=== PATIENT | female | born 1950 | race Caucasian/White ===

== ENCOUNTER 2018-03-01 19:32 | Inpatient (IN) | payer OTHER, BC ==
--- OUTSIDE RECORDS SUMMARY | 2018-03-01 19:51 | XMS REPORT | Clinical Summary ---
:1950 Author Organization [facility] Address [address] [place] [address] Care Team Providers Name Role Phone Lenny Mariee MD Primary Care Provider Allergies Active Allergy Reactions Severity Noted Date Comments Neomycin Swelling, Rash Low 06/16/2017 Tramadol Itching 06/16/2017 hyperactive Current Medications Prescription Sig. Disp. Refills Start Date End Date Status valsartan-hydrochl Take 1 tablet by Active orothiazide mouth every (DIOVAN-HCT) morning. 80-12.5 mg per tablet carvedilol (COREG) Take 12.5 mg by Active 12.5 MG tablet mouth 2 (two) times a day with meals. atorvastatin Take 20 mg by Active (LIPITOR) 20 MG mouth every tablet evening. Default OP ins metFORMIN XR Take 500 mg by Active (GLUCOPHAGE-XR) mouth every 500 mg 24 hr evening. tablet zolpidem (AMBIEN) Take 10 mg by Active 10 mg tablet mouth nightly as needed for sleep. melatonin 10 mg Take 10 mg by Active capsule mouth nightly. cetirizine Take 10 mg by Active (ZyrTEC) 10 MG mouth every tablet morning. celecoxib TK 1 C PO BID WC 2 06/16/2017 Active (CeleBREX) 200 MG capsule FLECTOR 1.3 % APPLY 1 PATCH BID 0 06/16/2017 Active patch 12 hour BY TRANSDERMAL ROUTE HYDROcodone-acetam TK 1 T PO Q 4 H 0 06/16/2017 Active inophen (NORCO) 10-325 mg per tablet MOVANTIK 25 mg 1 06/16/2017 Active tablet tablet ondansetron TK 1 T PO Q 8 H 0 06/16/2017 Active (ZOFRAN) 4 MG PRF NAUSEA OR VOM tablet tapentadol Take 100 mg by Active (NUCYNTA) 100 mg mouth every 6 tablet (six) hours as needed. aspirin (ECOTRIN) Take 81 mg by Discontinued 81 MG enteric mouth daily. 8 coated tablet aspirin (ECOTRIN) Take 1 tablet (81 60 tablet 0 06/29/2017 81 MG enteric mg total) by 8 coated tablet mouth 2 (two) times a day for 30 days. 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) 06/28/2017 Encounters Date Type Specialty Care Team Description 06/28/2017 Hospital Encounter Orthopedic Jose Lau - Surgery MD Chava 06/29/2017 06/28/2017 Procedure Pass Orthopedic Surgery 06/28/2017 Surgery Orthopedic Jose Lau REVISION, Surgery MD Chava ARTHROPLASTY, KNEE 06/16/2017 Pre-Admit Testing Pre-Admission Jose Lau Appointment Testing MD Chava 06/16/2017 Hospital Encounter Radiology Ulysses Dorantes MD Preop examination 06/16/2017 Lab Lab Ulysses Dorantes MD Pre-operative cardiovascular examination (Primary Dx); Other abnormal glucose; Essential hypertension, malignant 06/16/2017 Anesthesia Event [facility] Natalie, MIXING ROLL OPERATOR 06/16/2017 Transcribe Orders Access User, Transcribing Preop examination Order (Primary Dx) after 02/28/2017 Social History Tobacco Use Types Packs/Day Years Used Date Never Smoker Smokeless Tobacco: Never Used Alcohol Use Drinks/Week oz/Week Comments Yes 3 drinks per week Sex Assigned at Date Recorded Not on file Last Filed Vital Signs Vital Sign Reading Time Taken Blood Pressure 102/58 06/29/2017 1:40 PM POWER ORIGINATOR Pulse 83 06/29/2017 1:40 PM POWER ORIGINATOR Temperature 35.9 C (96.6 F) 06/29/2017 1:40 PM POWER ORIGINATOR Respiratory Rate 16 06/29/2017 1:40 PM POWER ORIGINATOR Oxygen Saturation 94% 06/29/2017 1:40 PM POWER ORIGINATOR Inhaled Oxygen Concentration - - Weight 87.5 kg (193 lb) 06/28/2017 4:08 PM POWER ORIGINATOR Height 160 cm (5' 3") 06/28/2017 4:08 PM POWER ORIGINATOR Body Mass Index 34.19 06/28/2017 4:08 PM POWER ORIGINATOR Plan of Treatment Health Maintenance Due Date Last Done Comments BREAST CANCER SCREENING 2000 COLON CANCER SCREENING 2000 SHINGRIX VACCINE (#1) 2000 ZOSTER VACCINE 2010 PNEUMOCOCCAL POLYSACCHARIDE VACCINE AGE 65 AND OVER 12/25/2015 PNEUMOCOCCAL-13 12/25/2015 INFLUENZA VACCINE 12/22/2017 Implants Implanted Type Area [employer] Application Developer Device Expiration Model / Identifier Date Serial / Lot Augment Fml Triathlon Distl Lt Ts Sz 3 5mm - [id number] Knee Joint Left: LIZET 05/07/2021 5540 A 301 / Implanted: Qty: 1 on 06/28/2017 by Jose Lau MD Implants Knee ORTHOPEDICS / WSSH Component Fml Lt Ts Sz 3 Triathlon - [id number] Knee Joint Left: LIZET 04/13/2022 5512 F 301 / Implanted: Qty: 1 on 06/28/2017 by Jose Lau MD Implants Knee ORTHOPEDICS / [id number] Insert Tib P-Stb Sz 3 11mm Triathlon X3 - [id number] Knee Joint Left: LIZET 02/05/2021 5532 G 311 / Implanted: Qty: 1 on 06/28/2017 by Jose Lau MD Implants Knee ORTHOPEDICS / [id number] Adapter Ofst Triathlon Ts 2mm - [id number] Knee Joint Left: LIZET 2021 5570 S 020 / Implanted: Qty: 1 on 06/28/2017 by Jose Lau MD Implants Knee ORTHOPEDICS / [id number] Baseplate Tib Triathlon Cementd Univl Sz 3 - [id number] Knee Joint Left: LIZET 02/07/2022 5521 B 300 / Implanted: Qty: 1 on 06/28/2017 by Jose Lau MD Implants Knee ORTHOPEDICS / [id number] Stem Cementd Ts [id number] Triathlon - [id number] Knee Joint Left: LIZET 5560 S 115 / Implanted: Qty: 1 on 06/28/2017 by Jose Lau MD Implants Knee ORTHOPEDICS / [id number] Augment Fml Triathlon Post Ts Sz 3 5mm - [id number] Knee Joint Left: LIZET 09/10/2020 5543 A 300 / Implanted: Qty: 1 on 06/28/2017 by Jose Lau MD Implants Knee ORTHOPEDICS / URVP Stem Knee Tri Cementd [id number] Triathlon - [id number] Orthopedic Left: LIZET 11/30/2021 5560 S 112 / Implanted: Qty: 1 on 06/28/2017 by Jose Lau MD Trauma Knee ORTHOPEDICS / Implants [id number] Cement Bone Full-Dose Premxd W/ Tobr Simplex P Pack 10/Ea - [id number] Surgical Bone Left: LIZET 12/21/2018 [id number] / Implanted: 06/28/2017 (Quantity not on file) Cement Knee ORTHOPEDICS / HIPS-KNEES [id number] Cement Bone Full-Dose Premxd W/ Tobr Simplex P Pack 10/Ea - [id number] Surgical Bone Left: LIZET 12/21/2018 [id number] / Implanted: Qty: 1 on 06/28/2017 by Jose Lau MD Cement Knee ORTHOPEDICS / HIPS-KNEES [id number] Cement Bone Full-Dose Premxd W/ Tobr Simplex P Pack 10/Ea - [id number] Surgical Bone Left: LIZET 12/21/2018 [id number] / Implanted: Qty: 1 on 06/28/2017 by Jose Lau MD Cement Knee ORTHOPEDICS / HIPS-KNEES [id number] Explanted Type Area [employer] Application Developer Device Expiration Model / Identifier Date Serial / Lot Insert Tib P-Stb Sz 3 11mm Triathlon X3 - [id number] Knee Joint Left: LIZET 01/03/2022 5532 G 311 / Explanted: Qty: 1 on 06/28/2017 Implants Knee ORTHOPEDICS / [id number] Procedures Procedure Name Priority Date/Time Associated Comments Diagnosis POC GLUCOSE Routine 06/29/2017 11:47 Results for this AM POWER ORIGINATOR procedure are in the results section. POC GLUCOSE Routine 06/29/2017 8:00 Results for this AM POWER ORIGINATOR procedure are in the results section. HC COMPLETE BLD COUNT Routine 06/29/2017 4:00 Results for this W/AUTO DIFF AM POWER ORIGINATOR procedure are in the results section. POC GLUCOSE Routine 06/28/2017 9:43 Results for this PM POWER ORIGINATOR procedure are in the results section. POC GLUCOSE Routine 06/28/2017 4:20 Results for this PM POWER ORIGINATOR procedure are in the results section. POC GLUCOSE Routine 06/28/2017 12:59 Results for this PM POWER ORIGINATOR procedure are in the results section. AFB STAIN Timed 06/28/2017 11:52 Results for this AM POWER ORIGINATOR procedure are in the results section. FUNGUS SMEAR Timed 06/28/2017 11:52 Results for this AM POWER ORIGINATOR procedure are in the results section. GRAM STAIN Timed 06/28/2017 11:52 Results for this AM POWER ORIGINATOR procedure are in the results section. AEROBIC CULTURE Timed 06/28/2017 11:52 Results for this AM POWER ORIGINATOR procedure are in the results section. FUNGUS CULTURE Timed 06/28/2017 11:52 Results for this AM POWER ORIGINATOR procedure are in the results section. ANAEROBIC CULTURE Timed 06/28/2017 11:52 Results for this AM POWER ORIGINATOR procedure are in the results section. FUNGUS SMEAR Timed 06/28/2017 11:41 Results for this AM POWER ORIGINATOR procedure are in the results section. GRAM STAIN Timed 06/28/2017 11:41 Results for this AM POWER ORIGINATOR procedure are in the results section. AFB STAIN Timed 06/28/2017 11:41 Results for this AM POWER ORIGINATOR procedure are in the results section. AEROBIC CULTURE Timed 06/28/2017 11:41 Results for this AM POWER ORIGINATOR procedure are in the results section. FUNGUS CULTURE Timed 06/28/2017 11:41 Results for this AM POWER ORIGINATOR procedure are in the results section. ANAEROBIC CULTURE Timed 06/28/2017 11:41 Results for this AM POWER ORIGINATOR procedure are in the results section. AFB STAIN Timed 06/28/2017 11:30 Results for this AM POWER ORIGINATOR procedure are in the results section. GRAM STAIN Timed 06/28/2017 11:30 Results for this AM POWER ORIGINATOR procedure are in the results section. FUNGUS SMEAR Timed 06/28/2017 11:30 Results for this AM POWER ORIGINATOR procedure are in the results section. AEROBIC CULTURE Timed 06/28/2017 11:30 Results for this AM POWER ORIGINATOR procedure are in the results section. FUNGUS CULTURE Timed 06/28/2017 11:30 Results for this AM POWER ORIGINATOR procedure are in the results section. ANAEROBIC CULTURE Timed 06/28/2017 11:30 Results for this AM POWER ORIGINATOR procedure are in the results section. AFB STAIN Timed 06/28/2017 11:19 Results for this AM POWER ORIGINATOR procedure are in the results section. GRAM STAIN Timed 06/28/2017 11:19 Results for this AM POWER ORIGINATOR procedure are in the results section. FUNGUS SMEAR Timed 06/28/2017 11:19 Results for this AM POWER ORIGINATOR procedure are in the results section. AEROBIC CULTURE Timed 06/28/2017 11:19 Results for this AM POWER ORIGINATOR procedure are in the results section. FUNGUS CULTURE Timed 06/28/2017 11:19 Results for this AM POWER ORIGINATOR procedure are in the results section. ANAEROBIC CULTURE Timed 06/28/2017 11:19 Results for this AM POWER ORIGINATOR procedure are in the results section. SURGICAL PATHOLOGY Routine 06/28/2017 11:11 Results for this REQUEST AM POWER ORIGINATOR procedure are in the results section. AFB STAIN Timed 06/28/2017 11:08 Results for this AM POWER ORIGINATOR procedure are in the results section. FUNGUS SMEAR Timed 06/28/2017 11:08 Results for this AM POWER ORIGINATOR procedure are in the results section. GRAM STAIN Timed 06/28/2017 11:08 Results for this AM POWER ORIGINATOR procedure are in the results section. AEROBIC CULTURE Timed 06/28/2017 11:08 Results for this AM POWER ORIGINATOR procedure are in the results section. FUNGUS CULTURE Timed 06/28/2017 11:08 Results for this AM POWER ORIGINATOR procedure are in the results section. ANAEROBIC CULTURE Timed 06/28/2017 11:08 Results for this AM POWER ORIGINATOR procedure are in the results section. NH AN ELECTIVE Routine 06/28/2017 10:56 SUPRAGLOTTIC AIRWAY AM POWER ORIGINATOR Procedure Note - Elba Kelly CRNA - 06/28/2017 10:55 AM POWER ORIGINATOR Airway Date/Time: 06/28/2017 10:40 AM Performed by: ELBA KELLY Authorized by: RASHI DEGROOT Location: OR Urgency: Elective Difficult Airway: No Resident/TRAIN CONTROLLER/AA: ELBA KELLY Performed by: resident/TRAIN CONTROLLER/AA Preoxygenated with 100% O2: Yes Mask Ventilation: Easy mask Final Airway Type: Supraglottic airway Final LMA: Classic LMA Size: 4 Number of Attempts at Approach: 1 Easy atraumatic placement of LMA; dentition and oropharynx unchanged AFB CULTURE Timed 06/28/2017 10:52 AM POWER ORIGINATOR NH AN SPINAL BLOCK Routine 06/28/2017 10:47 AM POWER ORIGINATOR POST-OP PAIN Procedure Note - Rashi Degroot MD - 06/28/2017 10:46 AM POWER ORIGINATOR Spinal Block Performed by: RASHI DEGROOT Authorized by: RASHI DEGROOT Patient Location: Pre-op Start Time: 06/28/2017 10:10 AM End Time: 06/28/2017 10:20 AM Reason for Block: at surgeon's request, post-op pain management Staff: Anesthesiologist: RASHI DEGROOT Performed by: Anesthesiologist patient identified, IV checked, site and side verified, risks and benefits discussed, procedure verified, surgical consent complete, patient position confirmed, monitors and equipment checked and pre-op evaluation complete TIme Out Performed: 06/28/2017 10:10 AM Spinal Block: Patient Position: Sitting Prep: Betadine and patient draped Monitoring: Blood pressure monitoring, continuous pulse oximetry and heart rate Approach: Midline Interspace: L3-4 Injection Technique: Single injection Needle: Needle Type: Pencil-tip Needle Gauge: 25 G Assessment: Coagulation status: Coagulation status verified Block assessment: No apparent complications and patient tolerated procedure well AFB CULTURE Timed 06/28/2017 10:41 AM POWER ORIGINATOR AFB CULTURE Timed 06/28/2017 10:30 AM POWER ORIGINATOR AFB CULTURE Timed 06/28/2017 10:19 AM POWER ORIGINATOR AFB CULTURE Timed 06/28/2017 10:08 AM POWER ORIGINATOR REVISION, 06/28/2017 9:30 AM POWER ORIGINATOR [id number] ARTHROPLASTY, KNEE [id number] Special Needs LIZET POC GLUCOSE Routine 06/28/2017 8:14 Results for this AM POWER ORIGINATOR procedure are in the results section. XR CHEST 2 VW Routine 06/16/2017 1:20 Preop examination Results for this PM POWER ORIGINATOR procedure are in the results section. ZZESTIMATED GFR Routine 06/16/2017 12:10 Results for this PM POWER ORIGINATOR procedure are in the results section. URINALYSIS SCREEN AND Routine 06/16/2017 12:10 Pre-operative Results for this MICROSCOPY, WITH PM POWER ORIGINATOR cardiovascular procedure are in REFLEX TO CULTURE examination the results Other abnormal section. glucose Essential hypertension, malignant PROTHROMBIN TIME WITH Routine 06/16/2017 12:10 Pre-operative Results for this INR PM POWER ORIGINATOR cardiovascular procedure are in examination the results Other abnormal section. glucose Essential hypertension, malignant PARTIAL THROMBOPLASTIN Routine 06/16/2017 12:10 Pre-operative Results for this TIME (PTT) PM POWER ORIGINATOR cardiovascular procedure are in examination the results Other abnormal section. glucose Essential hypertension, malignant HEMOGLOBIN A1C Routine 06/16/2017 12:10 Pre-operative Results for this PM POWER ORIGINATOR cardiovascular procedure are in examination the results Other abnormal section. glucose Essential hypertension, malignant COMPREHENSIVE Routine 06/16/2017 12:10 Pre-operative Results for this METABOLIC PANEL PM POWER ORIGINATOR cardiovascular procedure are in examination the results Other abnormal section. glucose Essential hypertension, malignant HC COMPLETE BLD COUNT Routine 06/16/2017 12:10 Pre-operative Results for this W/AUTO DIFF PM POWER ORIGINATOR cardiovascular procedure are in examination the results Other abnormal section. glucose Essential hypertension, malignant TYPE AND SCREEN STAT 06/16/2017 12:10 Pre-operative Results for this PM POWER ORIGINATOR cardiovascular procedure are in examination the results Other abnormal section. glucose Essential hypertension, malignant GRAM STAIN Routine 06/16/2017 12:10 Results for this PM POWER ORIGINATOR procedure are in the results section. URINE CULTURE Routine 06/16/2017 12:10 Results for this PM POWER ORIGINATOR procedure are in the results section. after 02/28/2017 Results POC glucose (06/29/2017 11:47 AM)Only the most recent of6 resultswithin the time period is included. POC glucose 150 (H) 65 - 99 mg/dL [facility] DEPARTMENT OF PATHOLOGY AND Comment: [facility]OMIC [facility]INE [facility] Notified RN Meter ID: [id number] Machine Tool Dresser: Jorge Jacob Performing Organization Address City/State/Zipcode Phone Number [facility] DEPARTMENT OF PATHOLOGY AND [address] [place] [phone] GENOMIC MEDICINE CBC with platelet and differential (06/29/2017 4:00 AM)Only the most recent of2 resultswithin the time period is included. WBC 14.70 (H) 4.50 - 11.00 k/uL [facility] DEPARTMENT OF PATHOLOGY AND GENOMIC MEDICINE RBC 3.65 (L) 4.20 - 5.50 m/uL [facility] DEPARTMENT OF PATHOLOGY AND GENOMIC MEDICINE HGB 11.3 (L) 12.0 - 16.0 g/dL [facility] DEPARTMENT OF PATHOLOGY AND GENOMIC MEDICINE HCT 34.0 (L) 37.0 - 47.0 % [facility] DEPARTMENT OF PATHOLOGY AND GENOMIC MEDICINE MCV 93.2 82.0 - 100.0 fL [facility] DEPARTMENT OF PATHOLOGY AND GENOMIC MEDICINE MCH 31.0 27.0 - 34.0 pg [facility] DEPARTMENT OF PATHOLOGY AND GENOMIC MEDICINE MCHC 33.2 31.0 - 37.0 g/dL [facility] DEPARTMENT OF PATHOLOGY AND GENOMIC MEDICINE RDW - SD 41.6 37.0 - 55.0 fL [facility] DEPARTMENT OF PATHOLOGY AND GENOMIC MEDICINE MPV 9.1 8.8 - 13.2 fL [facility] DEPARTMENT OF PATHOLOGY AND GENOMIC MEDICINE Platelet count 263 150 - 400 k/uL [facility] DEPARTMENT OF PATHOLOGY AND GENOMIC MEDICINE Nucleated RBC 0.00 /100 WBC [facility] DEPARTMENT OF PATHOLOGY AND GENOMIC MEDICINE Neutrophils 84.3 (H) 39.0 - 69.0 % [facility] DEPARTMENT OF PATHOLOGY AND GENOMIC MEDICINE Lymphocytes 8.8 (L) 25.0 - 45.0 % [facility] DEPARTMENT OF PATHOLOGY AND GENOMIC MEDICINE Monocytes 6.3 0.0 - 10.0 % [facility] DEPARTMENT OF PATHOLOGY AND GENOMIC MEDICINE Eosinophils 0.0 0.0 - 5.0 % [facility] DEPARTMENT OF PATHOLOGY AND GENOMIC MEDICINE Basophils 0.1 0.0 - 1.0 % [facility] DEPARTMENT OF PATHOLOGY AND GENOMIC MEDICINE Immature granulocytes 0.5Comment: 0.0 - 1.0 % [facility] DEPARTMENT OF "Immature PATHOLOGY AND GENOMIC granulocytes" MEDICINE (promyelocytes, myelocytes, metamyelocytes) Specimen Blood Performing Organization Address City/[facility] [address]/[facility] Phone Number [facility] DEPARTMENT OF PATHOLOGY AND [address] [place] [address] Fungus smear (06/28/2017 11:52 AM)Only the most recent of5 resultswithin the time period is included. Fungus smear No fungi observed. [facility] DEPARTMENT OF PATHOLOGY AND Comment: [employer] MEDICINE Specimen Information Specimen Source: Tissue Specimen Site: Knee, left Specimen Tissue - Knee, left Performing Organization Address City/[facility] [address]/[facility] Services[facility] Phone Number [facility] DEPARTMENT OF PATHOLOGY AND [address] [place] [phone] [facility] Aerobic culture (06/28/2017 11:52 AM)Only the most recent of5 resultswithin the time period is included. Aerobic culture isolate No growth after 3 days. [facility] DEPARTMENT OF Comment: PATHOLOGY AND GENOMIC Specimen Information MEDICINE Specimen Source: Tissue Specimen Site: Knee, left Specimen Tissue - Knee, left Performing Organization Address City/[facility] [address]/[facility] Services[facility] Phone Number [facility] DEPARTMENT OF PATHOLOGY AND [address] [place] [address] Gram stain (06/28/2017 11:52 AM)Only the most recent of6 resultswithin the time period is included. Gram stain isolate Rare WBC's [facility] DEPARTMENT OF PATHOLOGY No organisms seen AND GENOMIC MEDICINE Comment: Specimen Information Specimen Source: Tissue Specimen Site: Knee, left Specimen Tissue - Knee, left Performing Organization Address [facility] [address]/[facility] Phone Number [facility] DEPARTMENT OF PATHOLOGY AND [address] [place] [address] GENOMIC MEDICINE AFB stain (06/28/2017 11:52 AM)Only the most recent of5 resultswithin the time period is included. AFB stain No acid fast bacilli (AFB) seen. [facility] DEPARTMENT OF PATHOLOGY AND Comment: GENOMIC MEDICINE Specimen Information Specimen Source: Tissue Specimen Site: Knee, left Specimen Tissue - Knee, left Performing Organization Address [facility] [address]/[facility] Phone Number [facility] DEPARTMENT OF PATHOLOGY AND [address] [place] [address] GENOMIC MEDICINE Fungus culture (06/28/2017 11:52 AM)Only the most recent of5 resultswithin the time period is included. Fungus culture isolate No growth after 4 weeks of incubation. [facility] DEPARTMENT OF Comment: PATHOLOGY AND GENOMIC Specimen Information MEDICINE Specimen Source: Tissue Specimen Site: Knee, left Specimen Tissue - Knee, left Performing Organization Address [facility] [address]/[facility] Phone Number [facility] DEPARTMENT OF PATHOLOGY AND [address] [place] [address] GENOMIC MEDICINE Anaerobic culture (06/28/2017 11:52 AM)Only the most recent of5 resultswithin the time period is included. Anaerobic culture No anaerobic organisms isolated. [facility] DEPARTMENT OF isolate Comment: PATHOLOGY AND GENOMIC Specimen Information MEDICINE Specimen Source: Tissue Specimen Site: Knee, left Specimen Tissue - Knee, left Performing Organization Address [facility] [address]/[facility] Phone Number [facility] DEPARTMENT OF PATHOLOGY AND [address] [place] [address] GENOMIC MEDICINE Surgical pathology request (06/28/2017 11:11 AM) [facility] DEPARTMENT OF PATHOLOGY AND GENOMIC MEDICINE Surgical pathology report See link below for PDF [facility] DEPARTMENT OF Lab Report PATHOLOGY AND GENOMIC MEDICINE Result status This is Final Report to [facility] DEPARTMENT OF [id number] PATHOLOGY AND GENOMIC MEDICINE Performing Organization Address [facility] [address]/[facility] Phone Number [facility] DEPARTMENT OF PATHOLOGY AND [address] [place] [address] GENOMIC MEDICINE AFB culture (06/28/2017 10:52 AM)Only the most recent of5 resultswithin the time period is included. AFB culture isolate No growth after 6 weeks of incubation. [facility] DEPARTMENT OF PATHOLOGY Comment: AND GENOMIC MEDICINE Specimen Information Specimen Source: Tissue Specimen Site: Knee, left Specimen Tissue - Knee, left Performing Organization Address [facility] [address] [facility] Phone Number [facility] DEPARTMENT OF PATHOLOGY AND [address] [place] [phone] [facility] MEDICINE XR Chest 2 Vw (06/16/2017 1:20 PM) Narrative Performed At EXAMINATION:XR CHEST 2 VW RADIANT CLINICAL HISTORY:Z01.818 Encounter for other preprocedural examination, preop COMPARISON:05/15/2015 IMPRESSION: Mild bilateral lower lung atelectasis is seen. Heart size is within normal limits. There are degenerative changes of the spine. [facility]-[id number] Procedure Note Hm Interface, Radiology Results Incoming - 06/16/2017 2:34 PM POWER ORIGINATOR EXAMINATION: XR CHEST 2 VW CLINICAL HISTORY: Z01.818 Encounter for other preprocedural examination, preop COMPARISON: 05/15/2015 IMPRESSION: Mild bilateral lower lung atelectasis is seen. Heart size is within normal limits. There are degenerative changes of the spine. [id number] Performing Organization Address [facility] Phone Number [facility] [address] [place] [address] Urinalysis screen and microscopy, with reflex to culture (06/16/2017 12:10 PM) Specimen site Clean catch [facility] DEPARTMENT OF PATHOLOGY AND GENOMIC MEDICINE Color, UA Straw [facility] DEPARTMENT OF PATHOLOGY AND GENOMIC MEDICINE Appearance, UA Clear [facility] DEPARTMENT OF PATHOLOGY AND GENOMIC MEDICINE Specific gravity, UA 1.008 1.001 - 1.035 [facility] DEPARTMENT OF PATHOLOGY AND GENOMIC MEDICINE pH, UA 7.0 5.0 - 8.5 [facility] DEPARTMENT OF PATHOLOGY AND GENOMIC MEDICINE Protein, UA Negative Negative [facility] DEPARTMENT OF PATHOLOGY AND GENOMIC MEDICINE Glucose, UA Negative Negative [facility] DEPARTMENT OF PATHOLOGY AND GENOMIC MEDICINE Ketones, UA Negative Negative [facility] DEPARTMENT OF PATHOLOGY AND GENOMIC MEDICINE Bilirubin, UA Negative Negative [facility] DEPARTMENT OF PATHOLOGY AND GENOMIC MEDICINE Blood, UA Negative Negative [facility] DEPARTMENT OF PATHOLOGY AND GENOMIC MEDICINE Nitrite, UA Negative Negative [facility] SYSTEM DEPARTMENT OF PATHOLOGY AND GENOMIC MEDICINE Urobilinogen, UA <2.0 <2.0 [facility] DEPARTMENT OF PATHOLOGY AND GENOMIC MEDICINE Leukocyte esterase, UA Moderate (A) Negative [facility] DEPARTMENT OF PATHOLOGY AND GENOMIC MEDICINE Epithelial cells, UA 1 /HPF [facility] DEPARTMENT OF PATHOLOGY AND GENOMIC MEDICINE Round epithelial cells, UA <1 0 - 1 /HPF [facility] DEPARTMENT OF PATHOLOGY AND GENOMIC MEDICINE WBC, UA 1 0 - 4 /HPF [facility] DEPARTMENT OF PATHOLOGY AND GENOMIC MEDICINE RBC, UA 1 0 - 2 /HPF [facility] DEPARTMENT OF PATHOLOGY AND GENOMIC MEDICINE Bacteria, UA None seen None seen [facility] DEPARTMENT OF PATHOLOGY AND GENOMIC MEDICINE Yeast, UA None seen [facility] DEPARTMENT OF PATHOLOGY AND GENOMIC MEDICINE Yeast with pseudohyphae, UA None seen [facility] DEPARTMENT OF PATHOLOGY AND GENOMIC MEDICINE Specimen Urine Performing Organization Address City/[facility] [address]/[facility] Services[facility] Phone Number [facility] DEPARTMENT OF PATHOLOGY AND [address] [place] [address] [facility] Estimated GFR (06/16/2017 12:10 PM) GFR Non Af Amer >90 mL/min/1.73 m2 [facility] DEPARTMENT OF PATHOLOGY AND GENOMIC MEDICINE GFR Af Amer >90 mL/min/1.73 m2 [facility] DEPARTMENT OF Comment: PATHOLOGY AND GENOMIC Chronic kidney disease: <60 mL/min/1.73m2 MEDICINE Kidney failure: <15 mL/min/1.73m2 The estimated GFR is calculated from the IDMS-traceable Modification of Diet in Renal Disease Equation. The accuracy of the calculation is poor when the creatinine is normal. Calculated values >90 mL/min/1.73m2 are not reported. This equation has not been validated in children (<18 years), women, the elderly (>70 years), or ethnic groups other than Caucasians and Americans. Specimen Plasma specimen Performing Organization Address City/State/[facility] Servicescode Phone Number [facility] DEPARTMENT OF PATHOLOGY AND [address] [place] [address] [facility] Partial thromboplastin time, activated (06/16/2017 12:10 PM) PTT 29.6 23.0 - 36.0 sec [facility] DEPARTMENT OF PATHOLOGY Comment: AND [facility] PTT therapeutic range for unfractionated heparin is 61.0-112.0 seconds which corresponds to Anti-Xa 0.3-0.7 U/ml. Specimen Blood Performing Organization Address City/[facility] [address]/Zipcode Phone Number [facility] DEPARTMENT OF PATHOLOGY AND [address] [place] [address] Prothrombin time with INR (06/16/2017 12:10 PM) Prothrombin time 13.1 12.0 - 15.0 sec [facility] DEPARTMENT OF PATHOLOGY AND GENOMIC MEDICINE INR 1.0 [facility] DEPARTMENT OF Comment: PATHOLOGY AND GENOMIC The International Normalized Ratio (INR) is a therapeutic MEDICINE monitoring tool for patients who are stable on oral anticoagulant therapy. An INR of 2.0-3.0 is suggested for deep vein thrombosis/pulmonary embolism. Specimen Blood Performing Organization Address City/[facility] [address]/Zipcode Phone Number [facility] DEPARTMENT OF PATHOLOGY AND [address] [place] [phone] GENOMIC MEDICINE Type and screen (06/16/2017 12:10 PM) ABO grouping O [facility] DEPARTMENT OF PATHOLOGY AND GENOMIC MEDICINE Rh type POS [facility] DEPARTMENT OF PATHOLOGY AND GENOMIC MEDICINE Antibody screen (gel) NEG [facility] DEPARTMENT OF PATHOLOGY AND GENOMIC MEDICINE Specimen Blood Narrative Performed At pt. ext. form is ok. 06/16/201712:10 [facility] DE[facility] PATHOLOG[facility] Performing Organization Address [facility] Services[facility] Phone Number [facility] DEPARTMENT OF PATHOLOGY AND [address] [place], [place] [phone] [facility] Urine culture (06/16/2017 12:10 PM) Urine culture isolate Gram negative rods [facility] DEPARTMENT OF PATHOLOGY <10-1 cfu/ml AND GENOMIC MEDICINE (A) Comment: Specimen Information Specimen Source: Urine Specimen Site: See UA Urine culture isolate Mixed Gram positive raegan [facility] DEPARTMENT OF PATHOLOGY 10-2 cfu/ml AND GENOMIC MEDICINE (A) Specimen Urine Performing Organization Address City/[facility] [address]/Zipcode Phone Number [facility] DEPARTMENT OF PATHOLOGY AND [address] [place] [phone] [facility] Hemoglobin A1c (06/16/2017 12:10 PM) Hemoglobin A1C 7.4 (H) 4.0 - 5.6 % [facility] DEPARTMENT OF PATHOLOGY Comment: AND [facility] HbA1c cutoffs for diagnosing diabetes: 4.0% - 5.6%=normal 5.7% - 6.4%=increased risk for diabetes (prediabetes) >=6.5%=diabetes Goals for glycemic control (ADA 2016) < 7.0%Target for non adults with diabetes. More or less stringent targets may be appropriate for individual patients. <7.5% Target for Children and adolescents with type 1 diabetes. Specimen Blood Performing Organization Address City/State/Zipcode Phone Number [facility] DEPARTMENT OF PATHOLOGY AND [address] [place] [address] GENOMIC MEDICINE Comprehensive metabolic panel (06/16/2017 12:10 PM) Sodium 139 135 - 148 mEq/L [facility] DEPARTMENT OF PATHOLOGY AND GENOMIC MEDICINE Potassium 4.9 3.5 - 5.0 mEq/L [facility] DEPARTMENT OF PATHOLOGY AND GENOMIC MEDICINE Chloride 97 (L) 98 - 112 mEq/L [facility] DEPARTMENT OF PATHOLOGY AND GENOMIC MEDICINE CO2 30 24 - 31 mEq/L [facility] DEPARTMENT OF PATHOLOGY AND GENOMIC MEDICINE Anion gap 12 7 - 15 mEq/L [facility] DEPARTMENT OF Comment: PATHOLOGY AND GENOMIC Starting from August , anion gap calculation MEDICINE no longer incorporates potassium. Please note the change. BUN 6 (L) 8 - 23 mg/dL [facility] DEPARTMENT OF PATHOLOGY AND GENOMIC MEDICINE Creatinine 0.6 0.5 - 0.9 mg/dL [facility] DEPARTMENT OF PATHOLOGY AND GENOMIC MEDICINE Glucose 139 (H) 65 - 99 mg/dL [facility] DEPARTMENT OF PATHOLOGY AND GENOMIC MEDICINE Calcium 9.8 8.8 - 10.2 mg/dL [facility] DEPARTMENT OF PATHOLOGY AND GENOMIC MEDICINE Protein 7.6 6.3 - 8.3 g/dL [facility] DEPARTMENT OF Comment: PATHOLOGY AND GENOMIC 4.6-7.0 g/dL MEDICINE 1 week 4.4-7.6 g/dL 7 months-1year5.1-7.3 g/dL 1-2 years5.6-7.5 g/dL >3 years6.0-8.0 g/dL 18-150 6.3-8.3 g/dL Albumin 4.2 3.5 - 5.0 g/dL [facility] DEPARTMENT OF PATHOLOGY AND GENOMIC MEDICINE A/G ratio 1.2 0.7 - 3.8 [facility] DEPARTMENT OF PATHOLOGY AND GENOMIC MEDICINE Alkaline phosphatase 77 35 - 104 U/L [facility] DEPARTMENT OF PATHOLOGY AND GENOMIC MEDICINE AST 33 10 - 35 U/L [facility] DEPARTMENT OF PATHOLOGY AND GENOMIC MEDICINE ALT 35 5 - 50 U/L [facility] DEPARTMENT OF PATHOLOGY AND GENOMIC MEDICINE Total bilirubin 0.6 0.0 - 1.2 mg/dL [facility] DEPARTMENT OF PATHOLOGY AND GENOMIC MEDICINE Specimen Plasma specimen Performing Organization Address City/State/Zipcode Phone Number [facility] DEPARTMENT OF PATHOLOGY [place] [address] GENOMIC MEDICINE after 02/28/2017 Insurance Payer Benefit Plan / Group Subscriber ID Type Phone Address BCBS BCBS PAR/TRAD PLAN xxxxxxxxxxxx Indemnity MEDICARE MEDICARE PART A AND B xxxxxxxxxxx Medicare [place], [place] Home: [address] [facility] [phone] [address]
[2018-03-01] MEDS ORDERED: GLUCAGON 1 MG/VIAL IM PRN (20:36)
[2018-03-01] MEDS ORDERED: D50W 25 GM/50 ML SYRINGE IV PRN (20:36)
[2018-03-01] MEDS ORDERED: MAGNES/ALUMIN/SIMET 30ML UCUP PO PRN (20:36)
--- NOTE | 2018-03-01 21:13 | RAD REPORT ---
EXAM DESCRIPTION: Barry Pa And Lat (2 Views)03/01/2018 9:04 pm CLINICAL HISTORY: Shortness breath COMPARISON: September 2017 FINDINGS: Mild opacities within the mid and lower lateral right lung probably are chronic. A few ar eas of scarring are seen within the lingula. Lungs appear clear of acute infiltrate. The heart is normal size IMPRESSION: No acute abnormalities displayed
[2018-03-01 21:21] LABS: Albumin 3.8 g/dL (3.4-5.0); Bilirubin Total 0.7 mg/dL (0.2-1.0); Potassium 3.5 mmol/L (3.5-5.1)
[2018-03-01 21:22] LABS: Absolute Lymphocytes (CBC) 1.9 K/uL (0.7-4.9); Absolute Monocytes 1.9 K/uL (0.1-1.3); Absolute Neutrophil 14.9 K/uL (1.8-8.0); Basophils % 0.3 % (0-1.3); Eosinophils % 0.1 % (0-4.4); Hematocrit 36.2 % (36.0-45.0); Lymphocytes % 10.2 % (15.3-44.8); MCV 90.4 fL (80-100); MPV 7.6 fL (7.6-11.3); Monocytes % 9.9 % (3.3-12.3)
[2018-03-01] MEDS: ALBUTEROL 2.5 MG/3 ML NEB SOL NEB SCH (21:35)
[2018-03-01] MEDS: METHYLPREDNISOLONE 40 MG INJ IV SCH (21:46)
[2018-03-01] MEDS: ONDANSETRON 4 MG/2 ML VIAL IV PRN (21:47)
[2018-03-01] MEDS: INSULIN -REGULAR HUMAN 50 UNIT/0.5 ML ML SQ SCH (21:47)
[2018-03-01] MEDS: ACETAMINOPHEN 500 MG TAB PO PRN (21:47)
[2018-03-01] MEDS: GUAIFENESIN/DM 5 ML UCUP PO PRN (21:47)
[2018-03-01 22:48] VITALS: BMI 36.4
[2018-03-01] MEDS ORDERED: POTASSIUM CL SA 10 MEQ TAB PO ONE (22:55)
[2018-03-01 23:13] LABS: Urine Appearance CLEAR; Urine Bilirubin NEGATIVE (NEG); Urine Blood 1+ (NEG); Urine Color DK YELLOW; Urine Glucose TRACE (NEG); Urine Protein 2+ (NEG); Urine Specific Gravity 1.025 (1.005-1.030); Urine pH 6.5 (5.0-7.0)
[2018-03-01] MEDS: Levofloxacin500mg IV 500 MG/100 ML BAG IV SCH (23:27)
[2018-03-01] MEDS: ALPRAZOLAM 0.25 MG TABLET PO PRN (23:27)
[2018-03-01] MEDS: ENOXAPARIN 40 MG/0.4 ML SQ SCH (23:27)
[2018-03-02 00:22] LABS: Urine Bacteria <20 /HPF (<20); Urine Culture Reflex Order NOT NEEDED; Urine RBC <5 /HPF (NONE SEEN)
[2018-03-02] MEDS: METHYLPREDNISOLONE 40 MG INJ IV SCH ×4 (00:29→17:10)
[2018-03-02] MEDS: ALBUTEROL 2.5 MG/3 ML NEB SOL NEB SCH ×4 (01:20→19:49)
[2018-03-02] MEDS: GUAIFENESIN/DM 5 ML UCUP PO PRN ×3 (05:07→18:26)
[2018-03-02 05:09] LABS: Potassium 3.9 mmol/L (3.5-5.1)
[2018-03-02] MEDS ORDERED: POTASSIUM CL SA 10 MEQ TAB PO ONE (06:58)
[2018-03-02] MEDS: INSULIN -REGULAR HUMAN 50 UNIT/0.5 ML ML SQ SCH ×4 (08:27→21:09)
[2018-03-02] MEDS ORDERED: INFLUENZA VACCINE (for 3y+) 0.5 ML DOSE IMVAC ONE (09:00)
[2018-03-02] MEDS: ONDANSETRON 4 MG/2 ML VIAL IV PRN (09:15)
[2018-03-02] MEDS: ACETAMINOPHEN 500 MG TAB PO PRN ×2 (09:24→21:02)
--- NOTE | 2018-03-02 09:36 | RAD REPORT ---
EXAM DESCRIPTION: CT - Thorax Wo Con - 03/02/2018 8:38 am CLINICAL HISTORY: sob COMPARISON: September 2017 CT TECHNIQUE: Computed axial tomography of the chest was obtained. Contrast was not requested. All CT scans are performed using dose optimization technique as appropriate and may include automated exposure control or mA/KV adjustment according to patient size. FINDINGS: The evaluation of mediastinum, jade and vessels is limited secondary to lack of IV contras t administration. Mild to moderate tree-in-bud opacities are present within the right upper and right middle lobes. Min imal tree-in-bud opacities within the right lower lobe are seen. Mild tree-in-bud opacities within the left lower lobe are present. These have all progressed since th e prior exam. No mediastinal or hilar lymphadenopathy is seen. A pleural effusion is not present. A pericardial effusion is not noted. Fatty infiltration liver seen IMPRESSION: Mild to moderate tree-in-bud opacities within the right lung. Mild tree-in-bud opacities within the left lung. This probably indicates an atypical pneumonia
[2018-03-02] MEDS: ENOXAPARIN 40 MG/0.4 ML SQ SCH (21:03)
[2018-03-02] MEDS: Levofloxacin500mg IV 500 MG/100 ML BAG IV SCH (21:03)
[2018-03-02] MEDS ORDERED: GLUCAGON 1 MG/VIAL IM PRN (21:32)
[2018-03-02] MEDS ORDERED: D50W 25 GM/50 ML SYRINGE IV PRN (21:32)
[2018-03-02] MEDS: ALPRAZOLAM 0.25 MG TABLET PO PRN (22:23)
[2018-03-02] MEDS: INSULIN GLARGINE 100 UNITS/ML SQ SCH (22:23)
[2018-03-03] MEDS: GUAIFENESIN/DM 5 ML UCUP PO PRN ×3 (00:59→23:12)
[2018-03-03] MEDS: ONDANSETRON 4 MG/2 ML VIAL IV PRN ×2 (00:59→15:45)
[2018-03-03] MEDS: ALBUTEROL 2.5 MG/3 ML NEB SOL NEB SCH ×4 (01:50→20:21)
--- NOTE | 2018-03-03 02:15 | PN ---
Date of Progress Note: 03/02/2018 Subjective: The patient was seen this morning for followup. She was feeling better compared to fabio garcia. No new complaints or problems reported. Shortness of breath is better. Objective: Vital Signs: Reviewed. HEENT: Unremarkable. Lungs: Looks not in any respiratory distress. Some rales present in lung lag[place]re. Not using any acc essory muscles of respiration. Heart: Sounds normal. Abdomen: Soft. Bowel sounds normal. No guarding, rigidity, tenderness, or distention. Extremities: No leg edema. Laboratory Data: Sodium 136, potassium 3.9, chloride 98, bicarb 29, BUN 6, creatinine 0.70, glucose 280. CAT scan of the chest done today showing bilateral atypical pneumonia. Impression: 1.Pneumonia. 2.Acute exacerbation of asthma. 3.Diabetes mellitus, type 2, uncontrolled. Plan: We will go ahead and continue current medications. Continue oxygen, steroid, antibiotic, nebu lizer treatment. Overall, her condition has improved. We will repeat blood work tomorrow. Possible discharge to go home in next day or two days depending on her condition. Details and plan of treatm ent discussed with the patient. LETA/MODL Voice ID: [id number] Report ID: [id number]
[2018-03-03 04:11] LABS: Absolute Lymphocytes (CBC) 1.4 K/uL (0.7-4.9); Absolute Monocytes 1.2 K/uL (0.1-1.3); Absolute Neutrophil 18.6 K/uL (1.8-8.0); Eosinophils % 0.1 % (0-4.4); Hematocrit 35.6 % (36.0-45.0); Lymphocytes % 6.7 % (15.3-44.8); MCV 91.7 fL (80-100); MPV 7.8 fL (7.6-11.3); Monocytes % 5.8 % (3.3-12.3); RBC Red Blood Cell Count 3.88 M/uL (3.86-4.86)
--- NOTE | 2018-03-03 05:13 | HP ---
Date of Admission: 03/01/2018 Chief Complaint: Cough, congestion, shortness of breath. History Of Present Illness: A 67-year-old female patient with history of asthma and prior history of pneumonia, came into office today with complaints of cough, chest congestion, shortness of breath, wheezing and coughing up some yellowish-colored mucus that started as of this morning. Symptoms have gotten worse progressively throughout the day. She took some Tylenol at home and by the time I saw her, her temperature was still between 100 to 101 degrees Fahrenheit at office. The patient reported getting short of breath. With any minimum activity including just walking across the room, she was getting short of breath. After I saw her in the office, decision was made to admit her to hospital for further evaluation and management of this problem. Medications: Medications list reviewed. Review of Systems: Respiratory: As mentioned above. Constitutional: As mentioned above. All other systems reviewed and negative. Allergies: TO TRAMADOL. Past Surgical History: Significant for knee replacement surgery, appendectomy, cholecystectomy, hysterectomy, tonsillectomy. Past Medical History: Significant for hypertension, mild intermittent asthma, type 2 diabetes mellitus, mixed hyperlipidemia, osteopenia. Family History: Significant for pancreatic cancer and hypertension. Social History: Negative for smoking or alcohol use. Physical Examination: Vital Signs: Temperature 99.5, pulse 97, respiratory rate 20, oxygen saturation 95%, weight 185 lbs, height 5' 1". General: The patient appears weaker than normal, in mild respiratory distress when she tries to talk. HEENT: Head atraumatic, normocephalic. Conjunctivae nonerythematous. Sclerae white. Mouth, no thrush or edema noted. Ears/Nose, no mass, lesion, discharge noted. Neck: Supple. No JVD, lymph nodes, bruit, thyromegaly noted. Lungs: Bilateral scattered wheezing present. Heart: Normal heart sounds, no murmur or gallop. Abdomen: Soft, bowel sounds normal. No guarding, rigidity, tenderness, mass, hepatosplenomegaly, distention, or bruit noted. Extremities: No leg edema. No calf tenderness. Skin: No rash, ulcer, cellulitis. Lymphatics: No lymph node enlargement in neck, supraclavicular, infraclavicular region. Neuro: No focal neurological deficit. Chest: Unremarkable. External Genitalia: Deferred. Rectal: Deferred. Laboratory Data: White count 18.8, hemoglobin 12.8, platelets 361. Sodium 136 , potassium 3.5, chloride 97, bicarb 30, BUN 6, creatinine 0.90, glucose 207. Liver function tests unremarkable. Procalcitonin 2.37. Urinalysis negative. Chest x-ray shows mild opacity in mid and lower lateral right lung. Impression: 1. Pneumonia. 2. Acute exacerbation of asthma. 3. Type 2 diabetes mellitus, uncontrolled. 4. Hypertension. 5. Mixed hyperlipidemia. Plan: Admit the patient to hospital for further evaluation and management of this problem. We will go ahead and the patient is appropriate for inpatient and is expected to spend 2 midnights at hospital. We will continue home medications per order. Give DVT prophylaxis per order. Empiric antibiotic, Levaquin will be started. We will give oxygen nebulizer treatment, steroids, Solu-Medrol IV per order, and I will see her tomorrow for followup. Diabetes will be managed with sliding scale insulin. The details and plan of treatment discussed with her. We will see her tomorrow for followup. LETA/MODL Voice ID: [id number]
[2018-03-03 05:35] LABS: Blood Morphology Comment NOT SEEN (NOT SEEN); Platelet Estimate ADEQ
[2018-03-03] MEDS: INSULIN -REGULAR HUMAN 50 UNIT/0.5 ML ML SQ SCH ×4 (08:40→21:29)
[2018-03-03] MEDS: VALSARTAN 80 MG TAB PO SCH (08:41)
[2018-03-03] MEDS: CARVEDILOL 6.25 MG TAB PO SCH ×2 (08:41→21:26)
[2018-03-03] MEDS: CETIRIZINE HCL 5 MG TABLET PO SCH (08:41)
[2018-03-03] MEDS: predniSONE 20 MG TAB PO SCH (08:42)
[2018-03-03] MEDS: ATORVASTATIN 20 MG TAB PO SCH (08:42)
[2018-03-03] MEDS: ASPIRIN EC 81 MG TAB PO SCH ×2 (08:42→21:26)
[2018-03-03] MEDS: hydroCHLOROthiazide 12.5 MG CAP PO SCH (08:42)
[2018-03-03] MEDS: METFORMIN ER 500 MG TAB PO SCH ×2 (08:43→21:26)
[2018-03-03] MEDS: SERTRALINE HCL 50 MG TAB PO SCH (08:43)
[2018-03-03] MEDS ORDERED: HYDROCHLOROTHIAZIDE PO SCH (09:00)
[2018-03-03] MEDS ORDERED: [UNRECOGNIZED DRUG - OTHER] PO SCH (09:00)
[2018-03-03] MEDS ORDERED: VALSARTAN PO SCH (09:00)
[2018-03-03] MEDS: CEFTRIAXONE/SWI 1gm 1 GM/10 ML SYR IV SCH ×2 (09:53→21:26)
[2018-03-03] MEDS ORDERED: CEFTRIAXONE 1 GM/NS 50 ML 1 GM/50 ML BAG IV SCH (10:00)
[2018-03-03] MEDS: DULERA 200/5 (MOMETASONE/FORMOTEROL) INHALER IH SCH ×2 (13:55→21:30)
[2018-03-03] MEDS: ENOXAPARIN 40 MG/0.4 ML SQ SCH (21:27)
[2018-03-03] MEDS: INSULIN GLARGINE 100 UNITS/ML SQ SCH (21:28)
[2018-03-03] MEDS: Levofloxacin500mg IV 500 MG/100 ML BAG IV SCH (21:30)
[2018-03-03] MEDS: ALPRAZOLAM 0.5 MG TABLET PO SCH (23:12)
--- NOTE | 2018-03-04 00:32 | PN ---
Date of Progress Note: 03/03/2018 Subjective: The patient was seen this morning for followup. No new complaints or problems reported by the patient, except still has lot of cough. She has shortness of breath with ambulation, but yest erday she was able to walk, which is better than day before yesterday. Appetite is fair. Objective: Vital Signs: Reviewed. HEENT: Unremarkable. Lungs: Bilateral good equal air entry. No rales. Minimum wheezing noted with expiration. Heart: Sounds normal. Abdomen: Soft. Bowel sounds normal. No guarding, rigidity, tenderness, or distention. Extremities: No leg edema. Laboratory Data: White count is elevated today to 21,000, which is expected due to IV steroid use. Rest of the CBC is unremarkable. Impression: 1.Pneumonia. 2.Acute exacerbation of asthma. 3.Type 2 diabetes mellitus, uncontrolled. 4.Hypertension. 5.Insomnia. Plan: The patient reports that she has ongoing problem with insomnia, which is nothing new, but whil mae in the hospital, I have given her alprazolam 0.25 mg and she is not able to sleep for more than an hour to 2 hours. So, we will plan to go ahead and increase the dose of alprazolam to 0.5 mg at bedti me. Continue current antibiotic, which is Levaquin. IV steroid was discontinued and we will start o ral steroid as of today. Continue nebulizer treatment with albuterol. We will add inhaler, Dulera per order and we will also add ceftriaxone. I will see her tomorrow for fol kandy. LETA/MODL Voice ID: [id number] Report ID: [id number]
[2018-03-04] MEDS: ACETAMINOPHEN 500 MG TAB PO PRN ×3 (00:54→15:00)
[2018-03-04] MEDS: ONDANSETRON 4 MG/2 ML VIAL IV PRN ×3 (00:55→19:49)
[2018-03-04] MEDS: ALBUTEROL 2.5 MG/3 ML NEB SOL NEB SCH ×4 (03:32→19:50)
[2018-03-04] MEDS: INSULIN -REGULAR HUMAN 50 UNIT/0.5 ML ML SQ SCH ×4 (07:30→21:10)
[2018-03-04] MEDS: VALSARTAN 80 MG TAB PO SCH (08:39)
[2018-03-04] MEDS: CETIRIZINE HCL 5 MG TABLET PO SCH (08:39)
[2018-03-04] MEDS: hydroCHLOROthiazide 12.5 MG CAP PO SCH (08:39)
[2018-03-04] MEDS: predniSONE 20 MG TAB PO SCH (08:39)
[2018-03-04] MEDS: CARVEDILOL 6.25 MG TAB PO SCH ×2 (08:39→20:48)
[2018-03-04] MEDS: ASPIRIN EC 81 MG TAB PO SCH ×2 (08:39→20:48)
[2018-03-04] MEDS: METFORMIN ER 500 MG TAB PO SCH ×2 (08:39→20:47)
[2018-03-04] MEDS: CEFTRIAXONE/SWI 1gm 1 GM/10 ML SYR IV SCH ×2 (08:40→20:47)
[2018-03-04] MEDS: SERTRALINE HCL 50 MG TAB PO SCH (08:40)
[2018-03-04] MEDS: GUAIFENESIN/DM 5 ML UCUP PO PRN ×3 (08:40→22:40)
[2018-03-04] MEDS: ATORVASTATIN 20 MG TAB PO SCH ×2 (08:41→21:10)
[2018-03-04] MEDS: DULERA 200/5 (MOMETASONE/FORMOTEROL) INHALER IH SCH ×2 (08:41→21:10)
--- NOTE | 2018-03-04 12:33 | PN ---
Date of Progress Note: 03/04/2018 Subjective: The patient was seen this morning for followup. She was lying in bed, not in distress. Overall, her cough and shortness of breath are better. Yesterday, she was able to ambulate better t segal day before. She still has cough and with coughing spell she is still goes into bronchospasm as i t was noted this morning, but overall it is improving. Her cough is mostly dry. Rarely, she is able to cough up any mucus. Appetite is fair. She did have bowel movement yesterday. With a stronger d ose of alprazolam, she was able to get at least 4-5 hours of sleep last night which is better than pr evious 2-3 nights. Objective: Vital Signs: Reviewed. HEENT Examination: Unremarkable. Lungs: Clear to auscultation except minimal rales noted in left lung field, in the mid to lower lung region. Not using accessory muscles of respiration. Heart: Sounds normal. Abdomen: Soft. Bowel sounds normal. No guarding, rigidity, tenderness, distention. Extremities: No leg edema. Impression: 1.Pneumonia. 2.Acute exacerbation of asthma. 3.Hypertension. 4.Diabetes mellitus, type 2, uncontrolled. 5.Insomnia. Plan: We will go ahead and continue current nebulizer treatment, inhaler, steroid, antibiotic, and c urrent dose of alprazolam. I will see her tomorrow for followup. Possible discharge to go home over the weekend depending on her condition and plan of treatment discussed with the patient. LETA/CARLITO Voice ID: [id number] Report ID: [id number]
[2018-03-04] MEDS: ENOXAPARIN 40 MG/0.4 ML SQ SCH (20:49)
[2018-03-04] MEDS: Levofloxacin500mg IV 500 MG/100 ML BAG IV SCH (20:50)
[2018-03-04] MEDS: INSULIN GLARGINE 100 UNITS/ML SQ SCH (21:11)
[2018-03-04] MEDS: ALPRAZOLAM 0.5 MG TABLET PO SCH (22:38)
[2018-03-05] MEDS: ACETAMINOPHEN 500 MG TAB PO PRN (00:52)
[2018-03-05] MEDS: ALBUTEROL 2.5 MG/3 ML NEB SOL NEB SCH ×2 (01:35→08:05)
[2018-03-05 05:02] VITALS: O2SAT 100
[2018-03-05] MEDS: INSULIN -REGULAR HUMAN 50 UNIT/0.5 ML ML SQ SCH ×2 (07:30→11:47)
[2018-03-05 07:43] LABS: Absolute Lymphocytes (CBC) 2.9 K/uL (0.7-4.9); Absolute Monocytes 1.3 K/uL (0.1-1.3); Absolute Neutrophil 5.5 K/uL (1.8-8.0); Basophils % 0.2 % (0-1.3); Eosinophils % 0.2 % (0-4.4); Hematocrit 36.6 % (36.0-45.0); Lymphocytes % 29.8 % (15.3-44.8); MCH 31.7 pg (27.0-35.0); MCV 90.7 fL (80-100); MPV 7.2 fL (7.6-11.3); Monocytes % 13.4 % (3.3-12.3); RBC Red Blood Cell Count 4.03 M/uL (3.86-4.86)
[2018-03-05] MEDS: predniSONE 20 MG TAB PO SCH (08:37)
[2018-03-05] MEDS: CETIRIZINE HCL 5 MG TABLET PO SCH (08:37)
[2018-03-05] MEDS: ATORVASTATIN 20 MG TAB PO SCH (08:38)
[2018-03-05] MEDS: VALSARTAN 80 MG TAB PO SCH (08:38)
[2018-03-05] MEDS: ASPIRIN EC 81 MG TAB PO SCH (08:39)
[2018-03-05] MEDS: hydroCHLOROthiazide 12.5 MG CAP PO SCH (08:39)
[2018-03-05] MEDS: METFORMIN ER 500 MG TAB PO SCH (08:39)
[2018-03-05] MEDS: SERTRALINE HCL 50 MG TAB PO SCH (08:39)
[2018-03-05] MEDS: CARVEDILOL 6.25 MG TAB PO SCH (08:40)
[2018-03-05] MEDS: CEFTRIAXONE/SWI 1gm 1 GM/10 ML SYR IV SCH (08:40)
[2018-03-05] MEDS: DULERA 200/5 (MOMETASONE/FORMOTEROL) INHALER IH SCH (08:40)
[2018-03-05 08:41] VITALS: BP 139/62
[2018-03-05 08:48] VITALS: TEMP 98.4
[2018-03-05 08:55] LABS: Magnesium 2.2 mg/dL (1.8-2.4); Potassium 3.8 mmol/L (3.5-5.1)
[2018-03-05] MEDS: GUAIFENESIN/DM 5 ML UCUP PO PRN (08:55)
[2018-03-05] MEDS ORDERED: POTASSIUM CL SA 10 MEQ TAB PO ONE (08:57)
--- NOTE | 2018-03-06 04:10 | DS ---
Date of Discharge: 03/05/2018 Disposition: Discharged to go home. Physical Examination: HEENT: Unremarkable. Lungs: Clear to auscultation. Heart: Sounds normal. Abdomen: Soft. Bowel sounds normal. No guarding, rigidity, tenderness, or distention. Extremities: No leg edema. Discharge Medications And Instructions: 1.Continue all prior home medications. 2.Cefuroxime 500 mg 2 times a day for 1 week. 3.Levaquin 500 mg daily for 10 days. 4.Zofran 4 mg p.o. q.i.d. p.r.n. nausea, vomiting. 5.Prednisone 10 mg, patient to take 2 tablets daily for 4 days, then 1 tablet daily for 4 days, then half tablet daily for 4 days, then stop. 6.Follow up at my office a week after. 7.The patient to use Dulera inhaler 2 puffs by mouth 2 times a day and the patient to take her Duler a inhaler from hospital to use it at home and she has a 13-day supply left on this Dulera inhaler, so she hopefully will not need any new inhaler, but if she does, she will contact office for the pres iption. Laboratory Data: Initial white count 18.8, hemoglobin 12.8, platelets 361. Highest white count 21.3 , hemoglobin 12.4, platelets 405. Last white count today 9.8, hemoglobin 12.8, platelets 406. Last chemistry today sodium 138, potassium 3.8, chloride 99, bicarb 31, BUN 9, creatinine 0.70, glucose 12 6. Procalcitonin 0.40. Initial sodium 136, potassium 3.5, chloride 97, bicarb 30, BUN 6, creatinine 0.90, glucose 207. Liver function tests unremarkable. Procalcitonin 2.37. Hospital Course: This is a 67-year-old female patient admitted to the hospital after she came into [facility] with complaints of fever, chills, cough, congestion, and coughing up colored mucus. Please see dictated H and P for more information. The patient came into office with these complaints. After s he was evaluated, decision was made to admit her to the hospital. Further evaluation revealed elevat ed white count and chest x-ray showing pneumonia. CAT scan of the chest was done, which also showed pneumonia. No other concerning findings noted. White count was elevated when she came in was 18,000 . She was started on nebulizer treatments, IV steroid, antibiotic. Initially, she was on Levaquin. Home medications were continued. Her white count went up to 21,000 and is likely due to IV steroid use. We also added ceftriaxone and as of yesterday, we changed her IV steroid to oral prednisone and we also added Dulera. Overall, her condition has improved. Today, she is feeling much better. She still has some cough which is mostly dry now and when she does cough up, mucus is clear, not colored anymore. She is ambulating well. Overall, the patient's condition has improved significantly and s he will be discharged to go home in stable condition with above-mentioned medication and instructions . Final Diagnoses: 1.Pneumonia. 2.Acute exacerbation of asthma. 3.Type 2 diabetes mellitus, uncontrolled. 4.Hypertension. 5.Mixed hyperlipidemia. LETA/MODL Voice ID: [id number] Report ID: [id number]
== END 2018-03-05 12:41 | disposition home or self-care (01) | DRG 194 ==
LOC: 4TH 19:48
PROVIDERS: ADMIT Internal Medicine; ATTEND Internal Medicine
DX: J18.9 Pneumonia, unspecified organism (principal); J45.21 Mild intermittent asthma with (acute) exacerbation; E11.65 Type 2 diabetes mellitus with hyperglycemia; I10 Essential (primary) hypertension; E78.2 Mixed hyperlipidemia; G47.00 Insomnia, unspecified
CPT/HCPCS: 36415; 71046; 71250; 80048; 80053; 81001; 82962; 83735; 84145; 85025; G0008; J0696; J1650; J2405; J2920; J7512; J7606; Q2035